=== PATIENT | male | born 1945 | race Caucasian/White ===

== ENCOUNTER 2017-10-14 14:48 | Inpatient (IN) | payer MEDICARE, OTHER ==
[2017-10-14] MEDS: SOD CHLORIDE 0.9% 500 ML IV (15:26)
[2017-10-14 15:48] LABS: ADD MAN DIFF? NO
[2017-10-14 15:50] LABS: BASOPHILS % 0.2 % (0.0-2.0); EOSINOPHILS # 0.1 10^3/ul (0.0-0.5); EOSINOPHILS % 0.9 % (0.0-7.0); HEMATOCRIT 39.3 % (42.0-52.0); HEMOGLOBIN 12.9 g/dl (14.0-18.0); LYMPHOCYTES # 0.8 10^3/ul (0.8-2.9); LYMPHOCYTES % 14.1 % (15.0-51.0); MEAN CORPUSCULAR HEMOGLOBIN 30.6 pg (29.0-33.0); MEAN CORPUSCULAR HGB CONC 32.8 g/dl (32.0-37.0); MEAN CORPUSCULAR VOLUME 93.3 fl (82.0-101.0); MEAN PLATELET VOLUME 9.5 fl (7.4-10.4); MONOCYTE # 0.4 10^3/ul (0.3-0.9); MONOCYTES % 7.6 % (0.0-11.0); NEUTROPHIL # 4.4 10^3/ul (1.6-7.5); NEUTROPHILS % 76.8 % (39.0-77.0); PLATELET COUNT 170 10^3/UL (140-415); RED BLOOD COUNT 4.21 10^6/ul (4.70-6.10); RED CELL DISTRIBUTION WIDTH 12.3 % (11.5-14.5)
[2017-10-14 15:50] LABS: WHITE BLOOD COUNT 5.7 10^3/ul (4.8-10.8)
[2017-10-14 16:00] LABS: ALANINE AMINOTRANSFERASE 24 IU/L (13-69); ALBUMIN 4.2 g/dl (3.3-4.9); ALKALINE PHOSPHATASE 52 IU/L (42-121); ANION GAP 12 (8-16); ASPARTATE AMINO TRANSFERASE 50 IU/L (15-46); BILIRUBIN,INDIRECT 0.2 mg/dl (0-1.1); BILIRUBIN,TOTAL 0.2 mg/dl (0.2-1.3); BLOOD UREA NITROGEN 9 mg/dl (7-20); CALCIUM 9.4 mg/dl (8.4-10.2); CARBON DIOXIDE 24 mmol/L (21-31); CHLORIDE 108 mmol/L (97-110); CREATININE 0.71 mg/dl (0.61-1.24); GLUCOSE 103 mg/dl (70-220); LIPASE 134 U/L (23-300); POTASSIUM 4.1 mmol/L (3.5-5.1); SODIUM 140 mmol/L (135-144); TOTAL PROTEIN 7.2 g/dl (6.1-8.1)
[2017-10-14 16:13] LABS: B-TYPE NATRIURETIC PEPTIDE 306 PG/ML (0-125); TROPONIN-I 0.018 ng/ml (0.00-0.12)
[2017-10-14 16:18] LABS: FREE T4 (FREE THYROXINE) 1.39 ng/dl (0.78-2.44)
[2017-10-14 16:31] LABS: THYROID STIMULATING HORMONE 0.367 MIU/L (0.465-4.680)
[2017-10-14 16:34] LABS: INR 1.05; PROTIME 13.8 Sec (11.9-14.9); PT RATIO 1.1
[2017-10-14] MEDS: KETOROLAC 15 MG INJ IV (16:51)
[2017-10-14] MEDS: MAGNESIUM SULFATE 2 GM/50 ML 50 ML IVPB (17:27)
[2017-10-14 17:29] LABS: ADD UMIC YES; UR ASCORBIC ACID NEGATIVE (NEGATIVE); UR BILIRUBIN (Dip) NEGATIVE (NEGATIVE); UR BLOOD (Dip) 2+ mg/dL (NEGATIVE); UR CLARITY CLEAR (CLEAR); UR COLOR COLORLESS (YELLOW); UR GLUCOSE (Dip) NEGATIVE (NEGATIVE); UR KETONES (Dip) TRACE mg/dL (NEGATIVE); UR LEUKOCYTE ESTERASE (Dip) NEGATIVE Leu/ul (NEGATIVE); UR NITRITE (Dip) NEGATIVE (NEGATIVE); UR RBC 4 /HPF (0-5); UR SPECIFIC GRAVITY (Dip) 1.004 (1.003-1.030); UR TOTAL PROTEIN (Dip) NEGATIVE (NEGATIVE); UR UROBILINOGEN (Dip) NEGATIVE (NEGATIVE); UR WBC 0 /HPF (0-5)
[2017-10-14] MEDS: LORAZEPAM 2 MG INJ IV ×2 (17:47→23:51)
[2017-10-14] MEDS: morphine 2 MG INJ IV ×4 (17:48→21:07)
[2017-10-14] MEDS: ONDANSETRON 4 MG INJ IV (17:48)
[2017-10-14] MEDS ORDERED: MAGNESIUM HYDROXIDE 30ML CUP PO (18:00)
[2017-10-14] MEDS ORDERED: DOCUSATE SODIUM 100 MG CAP PO (18:00)
[2017-10-14] MEDS ORDERED: NACL 0.9% 3 ML SYG IV (18:00)
[2017-10-14] MEDS ORDERED: BISACODYL (EC) 5 MG TAB PO (18:00)
[2017-10-14] MEDS ORDERED: HYDROCODONE/APAP (5/325) TAB PO (18:00)
[2017-10-14 18:14] LABS: IRON 47 ug/dl (35-150)
[2017-10-14 18:24] LABS: % IRON SATURATION 16 % SAT (22-52); TOTAL IRON BINDING CAPACITY 288 ug/dl (241-421)
[2017-10-14] MEDS: CALCIUM CARBONATE 500 MG CHEW TAB PO (21:06)
[2017-10-14] MEDS: ISOSORBIDE DINITRATE 10 MG TAB PO (21:06)
[2017-10-15 06:35] LABS: ADD MAN DIFF? NO
[2017-10-15 06:40] LABS: BASOPHILS % 0.2 % (0.0-2.0); EOSINOPHILS # 0.1 10^3/ul (0.0-0.5); EOSINOPHILS % 0.9 % (0.0-7.0); HEMATOCRIT 34.6 % (42.0-52.0); HEMOGLOBIN 11.7 g/dl (14.0-18.0); LYMPHOCYTES # 1.1 10^3/ul (0.8-2.9); MEAN CORPUSCULAR HEMOGLOBIN 31.2 pg (29.0-33.0); MEAN CORPUSCULAR HGB CONC 33.8 g/dl (32.0-37.0); MEAN CORPUSCULAR VOLUME 92.3 fl (82.0-101.0); MEAN PLATELET VOLUME 9.3 fl (7.4-10.4); MONOCYTE # 0.7 10^3/ul (0.3-0.9); MONOCYTES % 10.5 % (0.0-11.0); NEUTROPHIL # 4.7 10^3/ul (1.6-7.5); NEUTROPHILS % 71.1 % (39.0-77.0); PLATELET COUNT 156 10^3/UL (140-415); RED BLOOD COUNT 3.75 10^6/ul (4.70-6.10); RED CELL DISTRIBUTION WIDTH 12.6 % (11.5-14.5)
[2017-10-15 06:40] LABS: WHITE BLOOD COUNT 6.7 10^3/ul (4.8-10.8)
[2017-10-15 07:10] LABS: ALBUMIN 3.5 g/dl (3.3-4.9); ANION GAP 8 (8-16); BLOOD UREA NITROGEN 16 mg/dl (7-20); CALCIUM 9.2 mg/dl (8.4-10.2); CARBON DIOXIDE 30 mmol/L (21-31); CHLORIDE 110 mmol/L (97-110); CREATININE 0.85 mg/dl (0.61-1.24); GLUCOSE 105 mg/dl (70-220); MAGNESIUM 2.4 mg/dl (1.7-2.5); PHOSPHORUS 3.6 mg/dl (2.5-4.9); POTASSIUM 3.8 mmol/L (3.5-5.1); SODIUM 144 mmol/L (135-144)
[2017-10-15] MEDS: PANTOPRAZOLE (EC) 40 MG TAB PO (07:47)
[2017-10-15] MEDS: ASPIRIN (EC) 81 MG TAB PO (09:02)
[2017-10-15] MEDS: CALCIUM CARBONATE 500 MG CHEW TAB PO ×4 (09:02→21:11)
[2017-10-15] MEDS: ISOSORBIDE DINITRATE 10 MG TAB PO ×3 (09:03→21:11)
[2017-10-15] MEDS: ENOXAPARIN 40 MG/0.4 ML SYG SC (09:05)
[2017-10-15] MEDS: LORAZEPAM 2 MG INJ IV ×2 (11:46→21:11)
[2017-10-15] MEDS: NITROGLYCERIN (SL) 0.4 MG TAB SL (11:46)
[2017-10-15] MEDS: morphine 2 MG INJ IV (18:45)
[2017-10-15 21:27] LABS: TROPONIN-I 0.017 ng/ml (0.00-0.12)
[2017-10-16] MEDS: PANTOPRAZOLE (EC) 40 MG TAB PO ×2 (07:25→18:51)
[2017-10-16 08:15] LABS: ADD MAN DIFF? NO
[2017-10-16 08:26] LABS: BASOPHILS % 0.2 % (0.0-2.0); EOSINOPHILS # 0.1 10^3/ul (0.0-0.5); EOSINOPHILS % 2.2 % (0.0-7.0); HEMATOCRIT 34.5 % (42.0-52.0); HEMOGLOBIN 11.4 g/dl (14.0-18.0); LYMPHOCYTES # 1.2 10^3/ul (0.8-2.9); LYMPHOCYTES % 22.3 % (15.0-51.0); MEAN CORPUSCULAR HEMOGLOBIN 30.6 pg (29.0-33.0); MEAN CORPUSCULAR VOLUME 92.5 fl (82.0-101.0); MEAN PLATELET VOLUME 9.5 fl (7.4-10.4); MONOCYTE # 0.5 10^3/ul (0.3-0.9); NEUTROPHIL # 3.5 10^3/ul (1.6-7.5); NEUTROPHILS % 65.1 % (39.0-77.0); PLATELET COUNT 166 10^3/UL (140-415); RED BLOOD COUNT 3.73 10^6/ul (4.70-6.10); RED CELL DISTRIBUTION WIDTH 12.7 % (11.5-14.5)
[2017-10-16 08:26] LABS: WHITE BLOOD COUNT 5.4 10^3/ul (4.8-10.8)
[2017-10-16 08:49] LABS: HDL CHOLESTEROL 41 mg/dl (31-75); LDL CHOLESTEROL,CALCULATED 67 mg/dl; TRIGLYCERIDES 84 mg/dl (0-149)
[2017-10-16 08:49] LABS: CHOLESTEROL 125 mg/dl (100-200)
[2017-10-16] MEDS: ENOXAPARIN 40 MG/0.4 ML SYG SC (09:00)
[2017-10-16] MEDS: ISOSORBIDE DINITRATE 10 MG TAB PO ×3 (09:00→20:58)
[2017-10-16] MEDS: ASPIRIN (EC) 81 MG TAB PO (09:00)
[2017-10-16] MEDS: CALCIUM CARBONATE 500 MG CHEW TAB PO ×4 (09:00→20:58)
[2017-10-16] MEDS: PROPOFOL 20 ML (10:06)
[2017-10-16] MEDS: LIDOCAINE 2% (SDV) 5 ML INJ (10:07)
[2017-10-16] MEDS: NITROGLYCERIN (SL) 0.4 MG TAB SL ×2 (12:22→18:06)
[2017-10-16] MEDS: AMLODIPINE 5 MG TAB PO (15:00)
[2017-10-16 17:01] LABS: PSA, FREE 0.3 ng/mL
[2017-10-16] MEDS: METOPROLOL 25 MG TAB PO (20:58)
[2017-10-17] MEDS: PANTOPRAZOLE (EC) 40 MG TAB PO ×2 (05:55→18:21)
[2017-10-17 06:52] LABS: ADD MAN DIFF? NO
[2017-10-17 07:13] LABS: WHITE BLOOD COUNT 5.2 10^3/ul (4.8-10.8)
[2017-10-17 07:13] LABS: BASOPHILS % 0.2 % (0.0-2.0); EOSINOPHILS # 0.2 10^3/ul (0.0-0.5); EOSINOPHILS % 3.7 % (0.0-7.0); HEMATOCRIT 35.9 % (42.0-52.0); LYMPHOCYTES # 1.2 10^3/ul (0.8-2.9); LYMPHOCYTES % 23.4 % (15.0-51.0); MEAN CORPUSCULAR HEMOGLOBIN 30.8 pg (29.0-33.0); MEAN CORPUSCULAR HGB CONC 33.4 g/dl (32.0-37.0); MEAN CORPUSCULAR VOLUME 92.1 fl (82.0-101.0); MONOCYTE # 0.6 10^3/ul (0.3-0.9); MONOCYTES % 10.7 % (0.0-11.0); NEUTROPHIL # 3.2 10^3/ul (1.6-7.5); NEUTROPHILS % 61.8 % (39.0-77.0); PLATELET COUNT 165 10^3/UL (140-415); RED CELL DISTRIBUTION WIDTH 12.6 % (11.5-14.5)
[2017-10-17] MEDS: METOPROLOL 25 MG TAB PO ×2 (09:00→21:07)
[2017-10-17] MEDS: BUSPIRONE 5 MG TAB PO ×2 (10:30→21:06)
[2017-10-17] MEDS: ISOSORBIDE DINITRATE 10 MG TAB PO ×3 (11:18→21:06)
[2017-10-17] MEDS: ASPIRIN (EC) 81 MG TAB PO (11:18)
[2017-10-17] MEDS: CALCIUM CARBONATE 500 MG CHEW TAB PO ×4 (11:19→21:06)
[2017-10-17] MEDS: ENOXAPARIN 40 MG/0.4 ML SYG SC (11:24)
[2017-10-18] MEDS: PANTOPRAZOLE (EC) 40 MG TAB PO ×2 (05:36→17:55)
[2017-10-18] MEDS: CALCIUM CARBONATE 500 MG CHEW TAB PO ×4 (08:46→21:08)
[2017-10-18] MEDS: ASPIRIN (EC) 81 MG TAB PO (08:47)
[2017-10-18] MEDS: METOPROLOL 25 MG TAB PO ×2 (08:47→21:08)
[2017-10-18] MEDS: ISOSORBIDE DINITRATE 10 MG TAB PO ×3 (08:48→21:08)
[2017-10-18] MEDS: BUSPIRONE 5 MG TAB PO ×2 (08:48→21:07)
[2017-10-18] MEDS: ENOXAPARIN 40 MG/0.4 ML SYG SC (08:51)
[2017-10-18] MEDS: NITROGLYCERIN (SL) 0.4 MG TAB SL (21:03)
[2017-10-19] MEDS: PANTOPRAZOLE (EC) 40 MG TAB PO ×2 (05:49→17:27)
[2017-10-19 06:38] LABS: ADD MAN DIFF? NO
[2017-10-19 06:44] LABS: BASOPHILS % 0.2 % (0.0-2.0); EOSINOPHILS # 0.2 10^3/ul (0.0-0.5); HEMATOCRIT 35.4 % (42.0-52.0); HEMOGLOBIN 11.8 g/dl (14.0-18.0); LYMPHOCYTES # 1.2 10^3/ul (0.8-2.9); LYMPHOCYTES % 25.8 % (15.0-51.0); MEAN CORPUSCULAR HEMOGLOBIN 30.7 pg (29.0-33.0); MEAN CORPUSCULAR HGB CONC 33.3 g/dl (32.0-37.0); MEAN CORPUSCULAR VOLUME 92.2 fl (82.0-101.0); MEAN PLATELET VOLUME 9.8 fl (7.4-10.4); MONOCYTE # 0.5 10^3/ul (0.3-0.9); MONOCYTES % 9.7 % (0.0-11.0); NEUTROPHIL # 2.9 10^3/ul (1.6-7.5); NEUTROPHILS % 60.1 % (39.0-77.0); PLATELET COUNT 159 10^3/UL (140-415); RED BLOOD COUNT 3.84 10^6/ul (4.70-6.10); RED CELL DISTRIBUTION WIDTH 12.7 % (11.5-14.5)
[2017-10-19 06:44] LABS: WHITE BLOOD COUNT 4.8 10^3/ul (4.8-10.8)
[2017-10-19 07:48] LABS: ALBUMIN 3.6 g/dl (3.3-4.9); ANION GAP 13 (8-16); BLOOD UREA NITROGEN 18 mg/dl (7-20); CALCIUM 9.2 mg/dl (8.4-10.2); CARBON DIOXIDE 30 mmol/L (21-31); CHLORIDE 106 mmol/L (97-110); CREATININE 0.85 mg/dl (0.61-1.24); GLUCOSE 92 mg/dl (70-220); MAGNESIUM 1.8 mg/dl (1.7-2.5); PHOSPHORUS 3.6 mg/dl (2.5-4.9); POTASSIUM 4.2 mmol/L (3.5-5.1); SODIUM 145 mmol/L (135-144)
[2017-10-19] MEDS: ISOSORBIDE DINITRATE 10 MG TAB PO ×3 (09:00→21:19)
[2017-10-19] MEDS: CALCIUM CARBONATE 500 MG CHEW TAB PO ×4 (11:26→21:18)
[2017-10-19] MEDS: BUSPIRONE 5 MG TAB PO ×2 (11:27→21:19)
[2017-10-19] MEDS: ASPIRIN (EC) 81 MG TAB PO (11:28)
[2017-10-19] MEDS: ENOXAPARIN 40 MG/0.4 ML SYG SC (11:32)
[2017-10-19] MEDS: METOPROLOL 25 MG TAB PO ×2 (11:33→21:20)
[2017-10-19] MEDS: traMADol 50 MG TAB PO (18:48)
[2017-10-20 03:59] LABS: ADD UMIC YES; UR ASCORBIC ACID NEGATIVE (NEGATIVE); UR BILIRUBIN (Dip) NEGATIVE (NEGATIVE); UR BLOOD (Dip) 3+ mg/dL (NEGATIVE); UR CLARITY SLIGHTLY CLOUDY (CLEAR); UR COLOR YELLOW (YELLOW); UR GLUCOSE (Dip) NEGATIVE (NEGATIVE); UR KETONES (Dip) NEGATIVE (NEGATIVE); UR LEUKOCYTE ESTERASE (Dip) 1+ Leu/ul (NEGATIVE); UR MUCUS FEW /HPF (NONE SEEN); UR NITRITE (Dip) NEGATIVE (NEGATIVE); UR RBC 76 /HPF (0-5); UR SPECIFIC GRAVITY (Dip) 1.024 (1.003-1.030); UR TOTAL PROTEIN (Dip) 1+ mg/dl (NEGATIVE); UR UROBILINOGEN (Dip) NEGATIVE (NEGATIVE); UR WBC 35 /HPF (0-5)
[2017-10-20] MEDS: PANTOPRAZOLE (EC) 40 MG TAB PO ×2 (06:00→21:34)
[2017-10-20] MEDS ORDERED: DIAZEPAM 5 MG TAB PO (08:00)
[2017-10-20] MEDS ORDERED: DIPHENHYDRAMINE 50 MG CAP PO (08:00)
[2017-10-20 08:02] LABS: ADD MAN DIFF? NO
[2017-10-20 08:10] LABS: WHITE BLOOD COUNT 5.9 10^3/ul (4.8-10.8)
[2017-10-20 08:10] LABS: BASOPHILS % 0.2 % (0.0-2.0); EOSINOPHILS # 0.2 10^3/ul (0.0-0.5); EOSINOPHILS % 2.9 % (0.0-7.0); HEMATOCRIT 37.9 % (42.0-52.0); HEMOGLOBIN 12.4 g/dl (14.0-18.0); LYMPHOCYTES # 1.1 10^3/ul (0.8-2.9); LYMPHOCYTES % 18.6 % (15.0-51.0); MEAN CORPUSCULAR HEMOGLOBIN 30.8 pg (29.0-33.0); MEAN CORPUSCULAR HGB CONC 32.7 g/dl (32.0-37.0); MEAN PLATELET VOLUME 9.9 fl (7.4-10.4); MONOCYTE # 0.7 10^3/ul (0.3-0.9); MONOCYTES % 11.3 % (0.0-11.0); NEUTROPHIL # 3.9 10^3/ul (1.6-7.5); NEUTROPHILS % 66.7 % (39.0-77.0); PLATELET COUNT 168 10^3/UL (140-415); RED BLOOD COUNT 4.03 10^6/ul (4.70-6.10); RED CELL DISTRIBUTION WIDTH 12.6 % (11.5-14.5)
[2017-10-20 08:25] LABS: INR 0.93; PROTIME 12.6 Sec (11.9-14.9)
[2017-10-20 08:31] LABS: ANION GAP 14 (8-16); BLOOD UREA NITROGEN 17 mg/dl (7-20); CALCIUM 9.5 mg/dl (8.4-10.2); CARBON DIOXIDE 31 mmol/L (21-31); CHLORIDE 104 mmol/L (97-110); CREATININE 0.85 mg/dl (0.61-1.24); GLUCOSE 95 mg/dl (70-220); POTASSIUM 4.2 mmol/L (3.5-5.1); SODIUM 145 mmol/L (135-144)
[2017-10-20] MEDS: ISOSORBIDE DINITRATE 10 MG TAB PO ×3 (09:24→21:33)
[2017-10-20] MEDS: CALCIUM CARBONATE 500 MG CHEW TAB PO ×4 (09:24→21:35)
[2017-10-20] MEDS: ASPIRIN (EC) 81 MG TAB PO (09:24)
[2017-10-20] MEDS: BUSPIRONE 5 MG TAB PO ×2 (09:24→21:34)
[2017-10-20] MEDS: METOPROLOL 25 MG TAB PO ×2 (09:25→21:34)
[2017-10-20] MEDS ORDERED: PANTOPRAZOLE (EC) 40 MG TAB PO (11:00)
[2017-10-20] MEDS ORDERED: NITROGLYCERIN (IC) 100 MCG/ML INJ (12:07)
[2017-10-20] MEDS ORDERED: IODIXANOL LOCM 100 ML BTL ×3 (12:07→13:53)
[2017-10-20] MEDS ORDERED: MIDAZOLAM 1 MG/ML 2 ML INJ (12:07)
[2017-10-20] MEDS ORDERED: FENTAnyl 50 MCG/ML VIAL (12:07)
[2017-10-20] MEDS ORDERED: LIDOCAINE 1% (MDV) 20 ML INJ (12:07)
[2017-10-20] MEDS ORDERED: VERAPAMIL 5 MG INJ (12:07)
[2017-10-20] MEDS ORDERED: HEPARIN 1000 UNITS/ML 10 ML INJ (12:07)
[2017-10-20] MEDS ORDERED: DIAZEPAM 5 MG TAB (12:32)
[2017-10-20] MEDS ORDERED: DIPHENHYDRAMINE 25 MG CAP (12:32)
[2017-10-20] MEDS ORDERED: ADENOSINE 30 ML (13:53)
[2017-10-20] MEDS ORDERED: TICAGRELOR 90 MG TABLET (14:03)
[2017-10-20] MEDS ORDERED: ASPIRIN 325 MG TAB (14:04)
[2017-10-20] MEDS ORDERED: morphine 2 MG INJ IV (14:30)
[2017-10-20] MEDS ORDERED: ZOLPIDEM 5 MG TAB PO (14:30)
[2017-10-20] MEDS ORDERED: ONDANSETRON 4 MG INJ IV (14:30)
[2017-10-20] MEDS ORDERED: OXYCODONE/ACETAMINOPHEN (5/325) TAB PO (14:30)
[2017-10-20] MEDS ORDERED: ACETAMINOPHEN 325 MG TAB PO (14:30)
[2017-10-20] MEDS ORDERED: DIAZEPAM 2 MG TAB PO (14:30)
[2017-10-20] MEDS ORDERED: AL HYDROX/MG HYDROX/SIMETH 30 ML CUP PO (14:30)
[2017-10-20] MEDS: SOD CHLORIDE 0.9% 1,000 ML IV (14:36)
[2017-10-20] MEDS: SUCRALFATE (100 MG/ML) 10ML CUP PO ×3 (14:43→21:32)
[2017-10-20] MEDS: CIPROFLOXACIN 500 MG TAB PO ×2 (17:03→17:04)
[2017-10-20] MEDS: ATORVASTATIN 80 MG TAB PO (21:33)
[2017-10-20] MEDS: TICAGRELOR 90 MG TABLET PO (21:35)
[2017-10-21] MEDS: LORAZEPAM 2 MG INJ IV (02:15)
[2017-10-21] MEDS: traMADol 50 MG TAB PO (05:15)
[2017-10-21] MEDS: CIPROFLOXACIN 500 MG TAB PO (07:14)
[2017-10-21] MEDS: SUCRALFATE (100 MG/ML) 10ML CUP PO ×2 (08:08→12:22)
[2017-10-21] MEDS: ASPIRIN (EC) 81 MG TAB PO (08:08)
[2017-10-21] MEDS: PANTOPRAZOLE (EC) 40 MG TAB PO (08:09)
[2017-10-21] MEDS: METOPROLOL 25 MG TAB PO (08:09)
[2017-10-21] MEDS: CALCIUM CARBONATE 500 MG CHEW TAB PO ×2 (08:09→12:22)
[2017-10-21] MEDS: BUSPIRONE 5 MG TAB PO (08:10)
[2017-10-21] MEDS: ISOSORBIDE DINITRATE 10 MG TAB PO ×2 (08:10→12:23)
[2017-10-21] MEDS: TICAGRELOR 90 MG TABLET PO (08:11)
[2017-10-21] MEDS ORDERED: CYCLOBENZAPRINE 10 MG TAB PO (15:30)
[2017-10-21] MEDS: LORAZEPAM 1 MG TAB PO (16:09)
== END 2017-10-21 16:25 | disposition home or self-care (01) | DRG 247 ==
LOC: ICU 10-20 12:06 → E/R 14:48 → TEL 20:13
PROC: 027034Z Dilation of Coronary Artery, One Artery with Drug-eluting Intraluminal Device, Percutaneous Approach (ICD-10-PCS; principal; 2017-10-16 09:36)
PROC: 4A033BC Measurement of Arterial Pressure, Coronary, Percutaneous Approach (ICD-10-PCS; 2017-10-16 09:36)
PROC: 4A023N7 Measurement of Cardiac Sampling and Pressure, Left Heart, Percutaneous Approach (ICD-10-PCS; 2017-10-16 09:36)
PROC: B211YZZ Fluoroscopy of Multiple Coronary Arteries using Other Contrast (ICD-10-PCS; 2017-10-16 09:36)
PROC: B215YZZ Fluoroscopy of Left Heart using Other Contrast (ICD-10-PCS; 2017-10-16 09:36)
PROC: 0DB38ZX Excision of Lower Esophagus, Via Natural or Artificial Opening Endoscopic, Diagnostic (ICD-10-PCS; 2017-10-16 09:36)
PROC: 0DB78ZX Excision of Stomach, Pylorus, Via Natural or Artificial Opening Endoscopic, Diagnostic (ICD-10-PCS; 2017-10-16 09:36)
PROC: 0DB68ZX Excision of Stomach, Via Natural or Artificial Opening Endoscopic, Diagnostic (ICD-10-PCS; 2017-10-16 09:36)
DX: I25.10 Atherosclerotic heart disease of native coronary artery without angina pectoris (principal); D64.9 Anemia, unspecified; I10 Essential (primary) hypertension; I47.1 Supraventricular tachycardia; K29.70 Gastritis, unspecified, without bleeding; N40.0 Benign prostatic hyperplasia without lower urinary tract symptoms; E78.5 Hyperlipidemia, unspecified; F41.9 Anxiety disorder, unspecified; K21.9 Gastro-esophageal reflux disease without esophagitis; I49.1 Atrial premature depolarization; Z79.82 Long term (current) use of aspirin; Z86.718 Personal history of other venous thrombosis and embolism
CPT/HCPCS: 36415; 71045; 74176; 76705; 80048; 80053; 80061; 80069; 81001; 82962; 83540; 83690; 83735; 83880; 84153; 84154; 84439; 84443; 84481; 84484; 85025; 85610; 87081; 88305; 88312; 93005; 93306; 93458; 93571; 96374; 96375; 96376; 99217; 99285-25; G0378